=== PATIENT | male | born 1955 | race African-American/Black ===

== ENCOUNTER 2023-07-25 22:17 | Inpatient (IN) | payer MEDICARE, MEDICAID ==
[~2023-07-25] VITALS: Ht 175.3 cm; Wt 95.7 kg
[2023-07-25 22:21] VITALS: O2SAT 98
[2023-07-26] MEDS ORDERED: KETOROLAC 15MG/ML VIAL IM ONE (00:30)
[2023-07-26] MEDS ORDERED: PIPERACILLIN/TAZOBACTAM 3.375GM/50ML PREMIX IV NR (01:30)
[2023-07-26] MEDS ORDERED: SODIUM CHLORIDE 0.9% 1000ML BAG (SEPSIS BOLUS) IV ONE (01:30)
[2023-07-26 01:48] LABS: HEMOGLOBIN. 15.3 g/dL (14.0-18.0); MEAN CORPUSCULAR HEMOGLOBIN 29.7 pg (28.0-32.0); MEAN CORPUSCULAR HGB CONC 33.2 g/dL (31.0-37.0); MEAN CORPUSCULAR VOLUME 89.6 fL (80.0-94.0); MEAN PLATELET VOLUME 7.4 fl (7.4-10.4); PLATELET 213 x1000/uL (130-400); RED BLOOD CELL COUNT 5.14 mill/uL (4.7-6.1); RED CELL DISTRIBUTION WIDTH 13.5 % (11.6-14.6); WHITE BLOOD COUNT 12.1 x1000/uL (4.5-11.0)
[2023-07-26 01:50] LABS: DIFFERENTIAL COMMENT 1
[2023-07-26 01:52] LABS: CHLORIDE 97 mEq/L (98-107); INDEX HEMOLYSI 1 (1-3); INDEX ICTERIC 1 (1-4); INDEX LIPEMIC 1 (1-3); POTASSIUM 3.5 mEq/L (3.5-5.1); SODIUM 131 mEq/L (136-145)
[2023-07-26 02:00] LABS: ALANINE AMINOTRANSFERASE 40 IU/L (13-61); ALBUMIN 3.8 g/dL (3.4-5.0); ASPARTATE AMINOTRANSFERASE 52 IU/L (15-37); BILIRUBIN TOTAL 1.9 mg/dL (0.1-1.0); CALCIUM 8.6 mg/dL (8.5-10.1); CARBON DIOXIDE 23 mEq/L (21-32); ETHANOL BLOOD < 10 mg/dL (-10); GLUCOSE 96 mg/dL (70-105); PROTEIN TOTAL 8.4 g/dL (6.0-8.3); UREA NITROGEN BLOOD 76 mg/dL (7-21)
[2023-07-26 02:14] LABS: CREATININE 6.7 mg/dL (0.6-1.3)
[2023-07-26] MEDS ORDERED: SODIUM CHLORIDE 0.9% 1,000 ML IV ONE (02:30)
[2023-07-26 03:56] LABS: CLARITY URINE CLOUDY (CLEAR); COLOR URINE DARK YELLOW (YELLOW); GLUCOSE URINE NEGATIVE (NEGATIVE); KETONES URINE NEGATIVE (NEGATIVE); LEUKOCYTE ESTERASE URINE 1+ (NEGATIVE); NITRITE URINE NEGATIVE (NEGATIVE); OCCULT BLOOD URINE 2+ (NEGATIVE); PH URINE 5.5 (4.5-8.0); PROTEIN URINE 1+ (NEGATIVE); SPECIFIC GRAVITY URINE 1.017 (1.005-1.030); UROBILINOGEN URINE 0.2 E.U./dL (0.2-1.0)
[2023-07-26 03:59] LABS: RBC URINE 25-50 /hpf (0-2); SQUAMOUS EPITHELIAL CELL URINE NONE SEEN /lpf (RARE/1+); YEAST URINE NONE SEEN
[2023-07-26 04:16] LABS: *AMPHETAMINES SCREEN URINE PRESUMTIVE POSITIVE (NEGATIVE); *BARBITURATES SCREEN URINE NEGATIVE (NEGATIVE); *BENZODIAZEPINES SCREEN URINE NEGATIVE (NEGATIVE); *COCAINE SCREEN URINE PRESUMTIVE POSITIVE (NEGATIVE); CANNABINOID URINE SCREEN PRESUMTIVE POSITIVE (NEGATIVE); ECSTASY MDMA SCREEN URINE CONF.TEST INDICATED (NEGATIVE); METHADONE URINE SCREEN NEGATIVE (NEGATIVE); OPIATES URINE SCREEN NEGATIVE (NEGATIVE); PHENCYCLIDINE URINE SCREEN NEGATIVE (NEGATIVE)
[2023-07-26 04:51] LABS: PLATELET ESTIMATE NORMAL
[2023-07-26 05:31] LABS: BACTERIA URINE NONE SEEN
[2023-07-26 09:15] VITALS: BP 113/63; PULSE 83; RESP 20; TEMP 98.4
[2023-07-26 09:36] VITALS: BP 113/63; PULSE 83; RESP 20; TEMP 98.4
[2023-07-26] MEDS ORDERED: GABA-533 MT (10:09)
[2023-07-26 10:13] VITALS: BP 113/63; PULSE 83; RESP 20; TEMP 98.3
[2023-07-26] MEDS ORDERED: ONDANSETRON HCL 4MG/2ML INJ IV PRN (11:45)
[2023-07-26] MEDS ORDERED: ACETAMINOPHEN 325MG TABLET PO PRN (11:45)
[2023-07-26 12:00] VITALS: BP 117/63; PULSE 89; RESP 20; TEMP 96.9
[2023-07-26] MEDS: SODIUM CHLORIDE 0.9% 1,000 ML IV SCH (12:16)
[2023-07-26] MEDS: TAMSULOSIN HCL 0.4MG SR CAPSULE PO SCH (13:00)
[2023-07-26] MEDS ORDERED: HYDROCODONE/ACETAMINOPHEN 5/325MG TABLET PO PRN (13:45)
[2023-07-26] MEDS: PIPERACILLIN/TAZOBACTAM 3.375 G in DEXTROSE 5% WATER 50 ML IV SCH ×2 (13:52→22:25)
[2023-07-26] MEDS ORDERED: NALOXONE HCL 0.4MG/ML VIAL IV PRN (14:00)
[2023-07-26 16:00] VITALS: BP 104/69; PULSE 88; RESP 18; TEMP 98.9
[2023-07-26 16:52] LABS: INDEX HEMOLYSI 1 (1-3)
[2023-07-26 17:01] LABS: CREATINE KINASE 421 IU/L (39-308)
[2023-07-26 20:00] VITALS: BP 111/71; PULSE 82; RESP 18; TEMP 98.2
[2023-07-27] VITALS: BP 103/59; PULSE 67; RESP 18; TEMP 98.6
[2023-07-27] MEDS: SODIUM CHLORIDE 0.9% 1,000 ML IV SCH ×2 (01:48→17:34)
[2023-07-27 04:00] VITALS: BP 112/62; PULSE 79; RESP 20; TEMP 98
[2023-07-27] MEDS: TAMSULOSIN HCL 0.4MG SR CAPSULE PO SCH (08:13)
[2023-07-27 08:18] LABS: HEMATOCRIT. 36.4 % (42.0-52.0); HEMOGLOBIN. 12.6 g/dL (14.0-18.0); MEAN CORPUSCULAR HEMOGLOBIN 30.2 pg (28.0-32.0); MEAN CORPUSCULAR HGB CONC 34.5 g/dL (31.0-37.0); MEAN CORPUSCULAR VOLUME 87.7 fL (80.0-94.0); MEAN PLATELET VOLUME 8.2 fl (7.4-10.4); PLATELET 215 x1000/uL (130-400); RED BLOOD CELL COUNT 4.15 mill/uL (4.7-6.1); RED CELL DISTRIBUTION WIDTH 13.3 % (11.6-14.6); WHITE BLOOD COUNT 6.1 x1000/uL (4.5-11.0)
[2023-07-27 09:07] LABS: DIFFERENTIAL COMMENT 1
[2023-07-27] MEDS: PIPERACILLIN/TAZOBACTAM 3.375 G in DEXTROSE 5% WATER 50 ML IV SCH ×2 (09:36→22:41)
[2023-07-27 09:56] LABS: CALCIUM 8.1 mg/dL (8.5-10.1); CARBON DIOXIDE 29 mEq/L (21-32); CHLORIDE 112 mEq/L (98-107); INDEX HEMOLYSI 1 (1-3); INDEX ICTERIC 1 (1-4); INDEX LIPEMIC 1 (1-3); POTASSIUM 3.6 mEq/L (3.5-5.1); SODIUM 142 mEq/L (136-145); UREA NITROGEN BLOOD 29 mg/dL (7-21)
[2023-07-27 10:01] LABS: CREATININE 1.1 mg/dL (0.6-1.3); GLUCOSE 104 mg/dL (70-105)
[2023-07-27 12:00] VITALS: BP 126/63; PULSE 61; RESP 20; TEMP 98.6
[2023-07-27] MEDS ORDERED: LEVO-65 MT (13:19)
[2023-07-27 15:01] LABS: PLATELET ESTIMATE NORMAL
[2023-07-27 16:00] VITALS: BP 117/63; PULSE 72; RESP 20; TEMP 78.7
[2023-07-27] MEDS: FINASTERIDE 5MG TABLET PO SCH (17:37)
[2023-07-27 20:00] VITALS: BP 121/66; PULSE 88; RESP 18; TEMP 97.8
[2023-07-28] VITALS: BP 118/68; PULSE 88; RESP 18; TEMP 97.8
[2023-07-28] MEDS: SODIUM CHLORIDE 0.9% 1,000 ML IV SCH (03:45)
[2023-07-28 04:00] VITALS: BP 124/68; PULSE 88; RESP 18; TEMP 97.8
[2023-07-28 07:30] LABS: BASOPHILS % 0.6 % (0.0-2.0); EOSINOPHILS % 4.2 % (0.0-5.0); HEMATOCRIT. 37.2 % (42.0-52.0); HEMOGLOBIN. 12.5 g/dL (14.0-18.0); LYMPHOCYTES % 15.6 % (20.0-50.0); MEAN CORPUSCULAR HEMOGLOBIN 29.5 pg (28.0-32.0); MEAN CORPUSCULAR HGB CONC 33.6 g/dL (31.0-37.0); MEAN CORPUSCULAR VOLUME 87.9 fL (80.0-94.0); MEAN PLATELET VOLUME 7.8 fl (7.4-10.4); MONOCYTES % 13.9 % (2.0-8.0); NEUTROPHILS % 65.7 % (40.0-76.0); PLATELET 236 x1000/uL (130-400); RED BLOOD CELL COUNT 4.23 mill/uL (4.7-6.1); RED CELL DISTRIBUTION WIDTH 12.9 % (11.6-14.6); WHITE BLOOD COUNT 7.1 x1000/uL (4.5-11.0)
[2023-07-28 07:40] LABS: CHLORIDE 110 mEq/L (98-107); INDEX HEMOLYSI 1 (1-3); INDEX ICTERIC 1 (1-4); INDEX LIPEMIC 1 (1-3); POTASSIUM 3.4 mEq/L (3.5-5.1); SODIUM 142 mEq/L (136-145)
[2023-07-28 07:54] LABS: CALCIUM 7.9 mg/dL (8.5-10.1); CARBON DIOXIDE 29 mEq/L (21-32); CREATININE 0.8 mg/dL (0.6-1.3); GLUCOSE 103 mg/dL (70-105); PHOSPHORUS 2.3 mg/dL (2.5-4.9); UREA NITROGEN BLOOD 11 mg/dL (7-21)
[2023-07-28 08:00] VITALS: BP 132/66; PULSE 73; RESP 17; TEMP 97.7
[2023-07-28] MEDS: FINASTERIDE 5MG TABLET PO SCH (09:40)
[2023-07-28] MEDS: PIPERACILLIN/TAZOBACTAM 3.375 G in DEXTROSE 5% WATER 50 ML IV SCH (09:40)
[2023-07-28] MEDS: TAMSULOSIN HCL 0.4MG SR CAPSULE PO SCH (09:41)
[2023-07-28] MEDS ORDERED: POTASSIUM PHOS,M-BASIC-D-BASIC 20 MMOL in DEXT 5% WATER 250 ML IV SCH (10:00)
[2023-07-28 10:11] LABS: ANTI-NUCLEAR ANTIBODIES DIRECT Negative (Negative)
[2023-07-28 12:00] VITALS: BP 115/52; PULSE 64; RESP 18; TEMP 98.1
[2023-07-28 13:56] VITALS: BP 130/66; PULSE 73; TEMP 97.7
[2023-07-29 06:11] LABS: COMPLEMENT C3 143 mg/dL (82-167); COMPLEMENT C4 21 mg/dL (12-38)
== END 2023-07-28 14:33 | disposition home or self-care (01) | DRG 551 ==
LOC: ER 22:17 → MICUSO 07-26 04:36 → 7WST 07-26 08:55
PROVIDERS: ADMIT Internal Medicine; ATTEND Internal Medicine
DX: M48.061 Spinal stenosis, lumbar region without neurogenic claudication (principal); N17.0 Acute kidney failure with tubular necrosis; N13.6 Pyonephrosis; E66.9 Obesity, unspecified; D72.829 Elevated white blood cell count, unspecified; I10 Essential (primary) hypertension; F14.90 Cocaine use, unspecified, uncomplicated; F15.90 Other stimulant use, unspecified, uncomplicated; F17.210 Nicotine dependence, cigarettes, uncomplicated; Z91.81 History of falling; Z68.31 Body mass index [BMI] 31.0-31.9, adult
CPT/HCPCS: 36415; 72131; 76770; 80048; 80053; 80305; 80320; 81003; 82550; 83605; 83735; 84100; 84145; 84153; 85025; 86038; 86160; 97162; 99285; J1885; J2543; J3490; J7030; J7060; A4315; G0103; G0480

== ENCOUNTER 2023-08-02 12:44 | Emergency (ER) | payer MEDICARE, MEDICAID ==
[~2023-08-02] VITALS: Ht 175.3 cm; Wt 93.0 kg
[~2023-08-02 12:44] MED LIST: GABA-533 MT; LEVO-65 MT
[2023-08-02 12:53] VITALS: BP 128/74; PULSE 61; RESP 16; TEMP 98.9; O2SAT 100
[2023-08-02 13:23] LABS: CLARITY URINE CLEAR (CLEAR); COLOR URINE YELLOW (YELLOW); GLUCOSE URINE NEGATIVE (NEGATIVE); KETONES URINE NEGATIVE (NEGATIVE); LEUKOCYTE ESTERASE URINE TRACE (NEGATIVE); NITRITE URINE NEGATIVE (NEGATIVE); OCCULT BLOOD URINE 2+ (NEGATIVE); PH URINE 6.5 (4.5-8.0); PROTEIN URINE NEGATIVE (NEGATIVE); SPECIFIC GRAVITY URINE 1.018 (1.005-1.030)
[2023-08-02 13:25] LABS: SQUAMOUS EPITHELIAL CELL URINE NONE SEEN /lpf (RARE/1+); YEAST URINE NONE SEEN
[2023-08-02 13:44] LABS: BACTERIA URINE FEW; RBC URINE 15-25 /hpf (0-2); WBC URINE 0-2 /hpf (0-2)
== END 2023-08-02 15:03 | disposition home or self-care (01) ==
LOC: ER 12:54
DX: T83.038A Leakage of other urinary catheter, initial encounter (principal); Y92.89 Other specified places as the place of occurrence of the external cause; Y84.6 Urinary catheterization as the cause of abnormal reaction of the patient, or of later complication, without mention of misadventure at the time of the procedure
CPT/HCPCS: 81003; 99283; A4315

== ENCOUNTER 2024-10-27 01:03 | Emergency (ER) | payer MEDICARE, MEDICAID ==
[~2024-10-27] VITALS: Ht 172.7 cm; Wt 89.0 kg
[~2024-10-27 01:03] MED LIST changes: -GABA-533 MT; +GABA-534 MT
[2024-10-27 01:27] VITALS: O2SAT 97
[2024-10-27 03:47] LABS: CLARITY URINE CLEAR (CLEAR); COLOR URINE YELLOW (YELLOW); GLUCOSE URINE NEGATIVE (NEGATIVE); KETONES URINE NEGATIVE (NEGATIVE); LEUKOCYTE ESTERASE URINE TRACE (NEGATIVE); NITRITE URINE NEGATIVE (NEGATIVE); OCCULT BLOOD URINE NEGATIVE (NEGATIVE); PROTEIN URINE NEGATIVE (NEGATIVE); SPECIFIC GRAVITY URINE 1.009 (1.005-1.030)
[2024-10-27 04:01] LABS: SQUAMOUS EPITHELIAL CELL URINE FEW /lpf (RARE/1+)
[2024-10-27 04:03] LABS: BACTERIA URINE NONE SEEN; RBC URINE 0-2 /hpf (0-2)
[2024-10-27] MEDS ORDERED: SULF1TAB48 MT (04:09)
[2024-10-27 04:20] VITALS: BP 125/69; PULSE 85; RESP 15; TEMP 36.66960; O2SAT 98
== END 2024-10-27 04:23 | disposition home or self-care (01) ==
LOC: ER 02:05
DX: R33.8 Other retention of urine (principal)
CPT/HCPCS: 76857; 81003; 99284